=== PATIENT | male | born 2000 ===

== ENCOUNTER → 2019-10-26 | Outpatient (CLI) | payer BC | LOC: ZCOL.LAB 17:27 | DX: U07.1 COVID-19 (principal) ==

== ENCOUNTER 2020-09-22 17:39 | Emergency (ER) | payer BC ==
[~2020-09-22] VITALS: Ht 170.2 cm; Wt 75.0 kg
[2020-09-22 18:10] VITALS: TEMP 99.3
[2020-09-22 19:41] LABS: BASO # 0.1 (0.0-0.2); BASO % 0.8 % (0.0-2.0); EOS # 0.2 (0.0-0.7); EOS % 2.5 % (0-4.0); GRAN # 6.9 (1.4-6.5); HEMATOCRIT 45.3 % (42.0-52.0); LYMPH # 1.5 (1.2-3.4); LYMPH % 15.6 % (20.0-51.0); MEAN CELL VOLUME 89 fl (80.0-100.0); MEAN CORPUSCULAR HEMOGLOBIN 31 pg (27.0-31.0); MEAN CORPUSCULAR HGB CONC 35 g/dl (33.0-37.0); MONO # 0.8 (0.1-0.6); MONO % 8.3 % (1.7-9.3); PLATELET COUNT 205 K/mm3 (130-400); RED BLOOD COUNT 5.12 M/mm3 (4.20-5.60); REDCELL DISTRIBUTION WIDTH-CV 12.2 % (11.5-14.5)
[2020-09-22 19:57] LABS: ALBUMIN 4.6 gm/dL (3.5-5.0); BILIRUBIN,TOTAL 0.9 mg/dL (0.0-1.0); CALCIUM 9.4 mg/dL (8.4-10.2); CREATININE, serum 1.06 (0.66-1.25); POTASSIUM 4.1 mmol/L (3.4-5.0); TOTAL PROTEIN 7.8 gm/dL (6.4-8.2)
[2020-09-22 21:55] VITALS: BP 146/94; PULSE 92
== END 2020-09-22 21:55 | disposition home or self-care (01) ==
LOC: COL.ER 17:39
PROVIDERS: Nurse Practitioner
DX: R00.2 Palpitations (principal)
CPT/HCPCS: J7030